=== PATIENT | male | born 1935 | race Caucasian/White ===

== ENCOUNTER 2025-03-25 20:05 | Emergency (ER) | payer MEDICARE, SELFPAY ==
[2025-03-25] VITALS (15 sets, daily range): BP systolic 160–194; BP diastolic 80–123; PULSE 56–78; TEMP 36.5; O2SAT 95–97; BMI 21.6
--- NOTE | 2025-03-25 20:24 | ECG_ITS ---
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 Measurements Intervals [place] Rate: 64 P: 35 DE: 306 QRS: -69 QRSD: 88 T: 38 QT: 400 QTc: 410 Interpretive Statements 1100 Sinus rhythm 1470 with occasional supraventricular premature complexes 2231 First degree AV block 2420 RSR (QR) in lead V1/V2, consistent with right ventricular conduction delay 2630 Left anterior fascicular block 3234 Anteroseptal myocardial infarction, age undetermined 9150 abnormal ECG No previous ECG available for comparison Electronically Signed On 03-26-2025 13:27:08 EDT by WILVER VO M.D.
--- NOTE | 2025-03-25 20:30 | ED.GENADUL1 ---
HPI HPI - General Adult General Chief complaint: Dizziness Stated complaint: DIZZINESS Time Seen by Provider: 03/25/25 20:15 Source: patient Mode of arrival: walk-in History of Present Illness HPI narrative: Patient is an 89-year-old male with a past medical history of HTN that presents to the emergency department with complaints of dizziness that started today. He denies any recent trauma, falls, medication changes, recent infections, or change in his daily routine. He states he has had this happen once before that improved with fluids as he thinks he was dehydrated. He states that when he looks up the room spins and when he looks down it will stop. Patient denies any recent cough, congestion, shortness of breath, chest pain, or abdominal pain. Related Data Home Medications ?Medication ?Instructions ?Recorded ?Confirmed amlodipine 5 mg tablet 5 mg PO QAM 03/25/25 03/25/25 Previous Rx's ?Medication ?Instructions ?Recorded meclizine 25 mg chewable tablet 25 mg PO DAILY #14 tabs 03/25/25 (Antivert) Allergies Allergy/AdvReac Type Severity Reaction Status Date / Time No Known Drug Allergies Allergy Verified 03/25/25 20:15 Review of Systems ROS Status of ROS 10 or more systems reviewed and unremarkable except as noted in history and below [facility] Medical History (Updated 03/25/25 @ 22:10 by KARIN Fisher) HTN (hypertension) ?I10 - Essential (primary) hypertension (ICD-10) Social History Little interest or pleasure in doing things: not at all Feeling down, depressed, or hopeless: not at all Exam Narrative Exam Narrative: General: No distress, age-appropriate Skin: Warm, dry, no pallor. No rash. Head: Normocephalic, atraumatic. Neck: Supple, non-tender. Eye: Pupils are equal, round and EOMI. No scleral icterus. Ears, Nose, Mouth, and Throat: No nasal mucosal hypertrophy. Oral mucosa is moist, no posterior oropharynx erythema, uvula is mid-line Cardiovascular: Regular Rate and Rhythm without murmur, gallop or rub. Respiratory: No accessory muscle use or respiratory distress. Lungs are clear to auscultation, no wheezing, rhonchi, rales heard posterior left lower lobe Chest Wall: no tenderness Back: Kyphotic posture Musculoskeletal: Full ROM of all extremities, no calf or popliteal tenderness GI: Abdomen is soft, non-distended, non tender to palpation. No masses appreciated. No rebound, guarding, or rigidity noted. Neurological: A&O x4. No cranial nerve dysfunction observed. No truncal ataxia. Moves all extremities. Sensation intact. Psychiatric: Cooperative and interactive. Normal mood and affect. Constitutional Vital Signs, click to edit/add: Last Vital Signs Temp 97.7 F 03/25/25 20:09 Pulse 56 L 03/25/25 22:27 Resp 18 03/25/25 22:27 BP 162/80 H 03/25/25 22:27 Pulse Ox 97 03/25/25 22:27 O2 Del Method Room Air 03/25/25 20:29 Documenting provider has reviewed patient's vital signs: yes Course Vital Signs Vital signs: Vital Signs Temperature 97.7 F 03/25/25 20:09 Pulse Rate 74 03/25/25 20:09 Respiratory Rate 18 03/25/25 20:09 Pulse Oximetry 95 03/25/25 20:09 Oxygen Delivery Method Room Air 03/25/25 20:09 Temperature 97.7 F 03/25/25 20:09 Pulse Rate 56 L 03/25/25 22:27 Respiratory Rate 18 03/25/25 22:27 Blood Pressure 162/80 H 03/25/25 22:27 Pulse Oximetry 97 03/25/25 22:27 Oxygen Delivery Method Room Air 03/25/25 20:29 Medical Decision Making MDM Narrative Medical decision making narrative: Patient is an 89-year-old male with a past medical history of HTN that presented to the emergency department with complaints of dizziness that started today. He states that the room will spin when he looks up and it resolves with looking down. He denies any other symptoms and does not have any shortness of breath, chest pain, abdominal pain. He states that he has experienced this before and thinks that it was dehydration. He denies any recent illness or medicine changes. He denies any trauma or falls. He denies any neurological deficits or extremity weakness/numbness On arrival patient is in no distress, sitting up in the ED cart. Blood pressure is hypertensive, otherwise vitals are stable. Temperature is afebrile at 97.7. Patient moves all 4 extremities equally. There are no focal neurological deficits. EKG on arrival sinus rhythm, cannot rule out atrial flutter with occasional PVCs. First-degree AV block, left anterior fascicular block. Anteroseptal myocardial infarction, age undetermined. CBC, BMP, mag, calcium, troponin, UA ordered. CT head ordered. Dizziness - CT head impression with no acute intercranial abnormality. Age-related changes. - CBC/BMP/magnesium/calcium within normal limit - Troponin negative - UA negative for infection - Most likely diagnosis is benign paroxysmal positional vertigo I discussed results with patient and his . We discussed close follow-up with his primary care provider for possible physical therapy, cardiology, or neurology referrals. 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 Return precautions given for chest pain, weakness, persistent vertigo, or new symptom and patient voiced understanding. Patient was able to safely ambulate with steady gait in the emergency department. Patient was discharged with prescription for Antivert daily and close follow-up with his primary care provider. Differential Diagnosis Differential Diagnosis: Cerebral hemorrhage, BPPV, dehydration Lab Data Lab results reviewed: Yes I reviewed the patient's lab results Labs: Lab Results 03/25/25 03/25/25 Range/Units 20:25 21:40 WBC 6.1 (4.0-11.0) 10^3/uL RBC 4.42 L (4.70-6.10) 10^6/uL Hgb 15.2 (14.0-18.0) g/dL Hct 44.1 (42.0-54.0) % MCV 99.8 H (80.0-94.0) fL MCH 34.4 H (25.9-34.0) pg MCHC 34.5 (29.9-35.2) g/dL RDW 12.5 (11.0-15.0) % Plt Count 157 (150-450) 10^3/uL MPV 10.4 (9.5-13.5) fL Neut % (Auto) 67.2 (43.0-75.0) % Lymph % (Auto) 17.7 L (20.5-60.0) % [place] % (Auto) 11.8 (1.7-12.0) % Eos % (Auto) 2.3 (0.9-7.0) % Baso % (Auto) 0.7 (0.2-2.0) % Neut # (Auto) 4.1 (1.4-6.5) 10^3/uL Lymph # (Auto) 1.1 L (1.2-3.8) 10^3/uL [place] # (Auto) 0.7 (0.3-0.8) 10^3/uL Eos # (Auto) 0.1 (0.0-0.7) 10^3/uL Baso # (Auto) 0.0 (0.0-0.1) 10^3/uL Abs Immat Gran (auto) 0.02 (0.00-0.03) 10^3/uL Imm/Tot Granulo (auto) 0.3 (0.0-0.5) % Sodium 139 (136-145) mmol/L Potassium 4.1 (3.5-5.1) mmol/L Chloride 103 (98-107) mmol/L Carbon Dioxide 26.0 (21.0-32.0) mmol/L Anion Gap 14.1 BUN 17.0 (7.0-18.0) mg/dL Creatinine 0.72 (0.70-1.30) mg/dL Est GFR ( Amer) >60 (>=60 mL/min/1.73m^2) Est GFR (Non-Af Amer) >60 (>=60 mL/min/1.73m^2) BUN/Creatinine Ratio 23.6 Glucose 111 H (74-106) mg/dL Calcium 9.2 (8.5-10.1) mg/dL Magnesium 1.9 (1.8-2.4) mg/dL Total Bilirubin 0.9 (0.2-1.0) mg/dL AST 26 (15-37) U/L ALT 24 (16-63) U/L Alkaline Phosphatase 75 (46-116) U/L Troponin I High Sens 11.8 (4.0-76.1) pg/mL Total Protein 7.9 (6.4-8.2) g/dL Albumin 4.0 (3.4-5.0) g/dL Globulin 3.9 g/dL Albumin/Globulin Ratio 1.0 Urine Color Yellow (YELLOW) Urine Clarity Clear (CLEAR) Urine pH 7.0 (5.0-9.0) Ur Specific [place] 1.020 (1.005-1.025) Urine Protein Negative (NEG/TRACE) mg/dL Urine Glucose (UA) Negative (NEGATIVE) mg/dL Urine Ketones Negative (NEGATIVE) mg/dL Urine Occult Blood Negative (NEGATIVE) Urine Nitrite Negative (NEGATIVE) Urine Bilirubin Negative (NEGATIVE) Urine Urobilinogen 1.0 (0.2-1.0) EU/dL Ur Leukocyte Esterase Negative (NEGATIVE) Imaging Data CT scan - head: Attestation: I have reviewed the pertinent imaging results. Radiologist's impression: No acute intracranial abnormality. ECG Data Attestation: ?I have reviewed the pertinent ECG results. Discharge Plan Discharge Chief Complaint: Dizziness Clinical Impression: Dizziness Patient Disposition: Home, Self-Care Time of Disposition Decision: 22:10 Condition: Good Mode of Transportation: Private Vehicle Prescriptions / Home Meds: New meclizine [Antivert] 25 mg tablet,chewable 25 mg PO DAILY Qty: 14 0RF No Action amlodipine 5 mg tablet 5 mg PO QAM Print Language: Ecuadorean Instructions: Dizziness (ED) Additional Instructions: Follow up with your family and Rtpatricia to ER for any problems or concerns Referrals: NEGRITO BRAVO [Primary Care Provider, Family Practice] - 1 week Discharge Date/Time: 03/25/25 22:29
[2025-03-25 20:52] LABS: Alanine Aminotransferase 24 U/L (16-63); Albumin Globulin Ratio 1.0; Albumin Level 4.0 g/dL (3.4-5.0); Alkaline Phosphatase 75 U/L (46-116); Anion Gap 14.1; Aspartate Amino Transferase 26 U/L (15-37); Blood Urea Nitrogen 17.0 mg/dL (7.0-18.0); Calcium 9.2 mg/dL (8.5-10.1); Carbon Dioxide 26.0 mmol/L (21.0-32.0); Chloride 103 mmol/L (98-107); Estimated GFR (African America >60 (>=60 mL/min/1.73m^2); Estimated GFR (Non-African Ame >60 (>=60 mL/min/1.73m^2); Globulin 3.9 g/dL; Glucose 111 mg/dL (74-106); Magnesium 1.9 mg/dL (1.8-2.4); Potassium 4.1 mmol/L (3.5-5.1); Sodium 139 mmol/L (136-145); Total Protein 7.9 g/dL (6.4-8.2)
[2025-03-25 21:05] LABS: Hematocrit 44.1 % (42.0-54.0); Hemoglobin 15.2 g/dL (14.0-18.0); Immature Granulocytes Abs Auto 0.02 10^3/uL (0.00-0.03); Immature Granulocytes Pct Auto 0.3 % (0.0-0.5); Lymphocytes Absolute Auto 1.1 10^3/uL (1.2-3.8); Mean Corpuscular HGB Conc 34.5 g/dL (29.9-35.2); Mean Corpuscular Hemoglobin 34.4 pg (25.9-34.0); Mean Corpuscular Volume 99.8 fL (80.0-94.0); Platelet Count 157 10^3/uL (150-450); Red Blood Count 4.42 10^6/uL (4.70-6.10); White Blood Count 6.1 10^3/uL (4.0-11.0)
[2025-03-25 21:49] LABS: Glucose Urine UA NEGATIVE (NEGATIVE)
== END 2025-03-25 22:29 | disposition home or self-care (01) ==
PROVIDERS: Physician Assistant; Emergency Provider Emergency Medicine; PCP Internal Medicine
DX: R42 Dizziness and giddiness (principal); I10 Essential (primary) hypertension
CPT/HCPCS: 36415; 70450; 80053; 81003; 83735; 84484; 85025; 93005; 99285